=== PATIENT | female | born 1970 | race Caucasian/White ===

== ENCOUNTER → 2016-10-17 | Outpatient (CLI) | payer BC ==
[~2016-10-17] MED LIST: ASPI81TA82 PO; ATOR10TA82 PO; BCPILLS PO; CHOL20009 PO; CYCL10TA6 PO; IMMU4INJ INJ; METF1TAB85 PO; NXM/40 PO; ONDA4TAB7 SL; PROP60CA5 PO; RIZA1TAB7 PO
[2016-10-17 15:38] LABS: IMMUNOGLOBULN M 23.2 mg/dL (40-230)
== END | disposition home or self-care (01) ==
LOC: C.LAB1850 13:58
PROVIDERS: ATTEND Internal Medicine Pulmonary Disease
DX: D80.4 Selective deficiency of immunoglobulin M [IgM] (principal); J32.9 Chronic sinusitis, unspecified; D80.3 Selective deficiency of immunoglobulin G [IgG] subclasses

== ENCOUNTER → 2017-05-26 | Outpatient (CLI) | payer BC ==
[~2017-05-26] MED LIST changes: -IMMU4INJ INJ
== END | disposition home or self-care (01) ==
LOC: C.LAB 13:19
PROVIDERS: ATTEND Internal Medicine Pulmonary Disease
DX: D80.9 Immunodeficiency with predominantly antibody defects, unspecified (principal)

== ENCOUNTER → 2017-08-07 | Outpatient (CLI) | payer BC ==
--- NOTE | 2017-08-07 13:55 | DIAGNOSTIC IMAGING REPORT ---
LEFT HAND 3 VIEWS CLINICAL HISTORY: Left hand pain. FINDINGS: 3 views of the left hand are obtained. No prior studies are available for comparison at the time of dictation. The skeletal structures are well mineralized. No fracture is seen. The joint spaces of the hand are well-maintained. The overlying soft tissues are within normal limits. IMPRESSION: Unremarkable radiographic assessment of the left hand. Electronically signed by: Yoni Salinas M.D. 08/07/2017 1:54 PM Dictated Date/Time: 08/07/2017 1:53 PM
== END | disposition home or self-care (01) ==
LOC: C.RADBC 13:17
PROVIDERS: ATTEND Nurse Practitioner Family
DX: M79.642 Pain in left hand (principal)